=== PATIENT | female | born 1980 | race Caucasian/White ===

== ENCOUNTER 2020-01-05 14:42 | Outpatient (CLI) | payer BC, SELFPAY ==
--- NOTE | 2020-01-05 14:49 | XR_ITS ---
WS: [id number] HIP WITH PELVIS LEFT TECHNIQUE: 3 views of the left hip with pelvis CLINICAL INFORMATION: HIP PAIN LEFT COMPARISON: None. FINDINGS: Normal anatomic alignment. No acute fractures. Normal femoral neck. Pelvic phleboliths. Left pubic ra mi appear normal. Partially visualized calcified lesion along the medial femoral shaft measuring 10 m m. This is only partially evaluated. This may represent incidental osseous exostosis versus soft tiss ue calcification but incompletely evaluated. XR/XR hip LT 2-3V wo/w pel* [id number] IMPRESSION: 1. No acute hip fractures. 2. Small osseous exostosis or calcification along the medial femoral shaft par tially visualized measuring 10 mm. Recommend left femoral radiographs in furthe r evaluation.
== END 2020-01-05 14:43 | disposition home or self-care (01) ==
PROVIDERS: Family Provider Family Medicine; Visit Provider Nurse Practitioner Family
DX: M25.552 Pain in left hip (principal)
CPT/HCPCS: 73502